=== PATIENT | male | born 1950 | race Caucasian/White ===

== ENCOUNTER 2018-06-04 15:10 | Inpatient (IN) ==
--- NOTE | 2018-06-04 16:40 | Emergency Department Note ---
Disposition Clinical Impression: Cellulitis and abscess of left leg, Hyponatremia, Non-alcoholic cirrhosis Disposition: Admitted As Inpatient Condition: Fair Referrals: Grazyna Rust, SANITIZER [Primary Care Provider] - Forms: ED Satisfaction Letter Skin/Abscess/FB HPI Chief complaint: ED Skin/Abscess/Foreign Body Stated complaint: cellulitus in legs Time Seen by Provider: 06/04/18 15:14 Source: patient Limitations: no limitations Nursing Notes Reviewed: Yes Vital Signs Reviewed: Yes HPI Narrative: 67-year-old male percents for evaluation of swelling located to his lower extremities with associated redness to his skin. Patient has chronic swelling to his lower extremities but over the last few days has developed increasing swelling and now has developed redness particularly of his left lower extremity. Patient is unaware of any fever or chills. He has no history of diabetes and has had prior problems with cellulitis in the past Home Medications Medication Instructions Recorded Confirmed Aspirin [Lo-Dose Aspirin EC] 81 mg PO DAILY 04/21/16 05/07/18 Carvedilol 18.75 mg PO BID 04/21/16 05/07/18 Furosemide [Lasix] 40 mg PO DAILY 04/21/16 05/07/18 Atorvastatin Calcium [Lipitor] 80 mg PO HS 05/07/18 05/07/18 Cyanocobalamin (B-12) [Vitamin B12] 1,000 mcg PO DAILY 05/07/18 05/07/18 Gabapentin [Neurontin] 300 mg PO TID 05/07/18 05/07/18 [place]-3/Dha/Epa/Fish Oil [Fish Oil 1 cap PO DAILY 05/07/18 05/07/18 1,000 mg Softgel] Spironolactone [Aldactone] 100 mg PO DAILY 05/07/18 05/07/18 Previous Rx's Medication Instructions Recorded Albuterol Sulfate [Albuterol 2 puff IH Q4HR PRN #1 hfa.[email or web address] 04/14/18 Inhaler] Apixaban [Eliquis] 5 mg PO BID #60 tablet 05/08/18 Allergies Allergy/AdvReac Type Severity Reaction Status Date / Time No Known Allergies Allergy Verified 12/02/17 14:11 Review of Systems: Constitutional: [Negative for fever and chills.] HENT: [Negative for congestion.] Eyes: [Negative for discharge.] Respiratory: [Negative for shortness of breath.] Cardiovascular: [Negative for chest pain.] Gastrointestinal: [Negative for nausea, vomiting, abdominal pain and diarrhea.] Endocrine: [Negative for excessive thirst,urination] Genitourinary: [Negative for dysuria and frequency.] Musculoskeletal: [Negative for myalgias and arthralgias.] Skin: see history of present illness Neurological: [Negative for dizziness, localized weakness and headaches.] Psychiatric/Behavioral: [Negative for nervous/anxious.] All other systems reviewed and are negative. Past Medical History - Past Medical History Attestation: Yes The following information was validated with the patient. Source: patient Medical history: Reports: atrial fibrillation, cardiomyopathy, cirrhosis, CHF, coronary artery disease, diabetes, GERD, hyperlipidemia, hypertension, myocardial infarction Surgical history: Reports: angioplasty/stent, coronary bypass (CABG), pacemaker/ AICD Psychiatric history: Reports: depression - Social History Smoking Status: Former smoker Smokeless Tobacco Status: No Alcohol use: Reports: none Drug use: Reports: none Physical Exam Constitutional: Patient is [alert], [healthy,and comfortable] and cooperative. . The patient appears [asymptomatic], [nontoxic, and does not appear ill]. HENT: Head: Normocephalic and atraumatic. Right Ear: External ear normal. Left Ear: External ear normal. Nose: Nose normal. Mouth/Throat: Oropharynx is clear and mucous membranes show [good hydration.] Eyes: Conjunctivae and EOM are normal. Pupils are equal, round, and reactive to light. Right eye exhibits [no] discharge. Left eye exhibits [no] discharge. Neck: Trachea is midline, normal range of motion and [phonation normal]. Neck supple. Cardiovascular: [Regular rhythm], S1 normal, S2 normal, normal heart sounds and intact distal pulses. Exam reveals no gallop and no friction rub. No murmur heard. [Capillary refill is brisk.] [Peripheral pulses are 2+] Pulmonary/Chest: Effort [normal] No stridor. [No] tachypnea. [No] respiratory distress. There are [no] decreased breath sounds. [There no wheezes, no rhonchi , or rales.] Abdominal: Soft. [Bowel sounds are normal]. There exhibits distension with tight ascites noted. There is [no tenderness], [no] CVA tenderness. There is [ no rigidity, no rebound, no guarding]. Musculoskeletal: Normal range of motion of uninvolved extremities. There exhibits [no edema]. [ ] Neurological: Patient is alert. Patient displays no atrophy and no tremor. No cranial nerve deficit and exhibits normal muscle tone. Coordination normal grossly. Skin: Skin is warm and dry. No erythema. Erythematous rash from his distal thigh down to his lower extremity on the left. Erythematous rash from his proximal lower leg down to his distal lower extremity on the right. Psychiatric: Patient has a [normal mood and affect.] Course Course Narrative: Patient was discussed with Dr. Sorenson on-call, hospitalist for admission. She is excepted the patient. I have written initial admitting orders at her convenience and she will assume further care upon the patient's arrival to the floor Vital Signs Temperature 98.3 F 06/04/18 16:26 Pulse Rate 123 06/04/18 16:26 Respiratory Rate 16 06/04/18 16:26 Blood Pressure 105/65 06/04/18 16:26 O2 Sat by Pulse Oximetry 94 06/04/18 16:26 Temperature 98.3 F 06/04/18 16:26 Pulse Rate 123 06/04/18 16:26 Respiratory Rate 16 06/04/18 16:26 Blood Pressure 105/65 06/04/18 16:26 O2 Sat by Pulse Oximetry 94 06/04/18 16:26 Oxygen Delivery Oxygen Delivery Room Air Skin/Abscess/Foreign Body - MDM Narrative Medical decision making narrative: Patient clearly has cellulitis and will need IV antibiotics - Lab Data Lab results reviewed: Yes I reviewed the patient's lab results. Result diagrams: 06/04/18 17:07 06/04/18 17:07 Lab Results 06/04/18 06/04/18 Range/Units 17:07 17:07 WBC 9.4 (4.3-11.1) K/mcL RBC 6.21 H (4.19-5.50) M/mcL Hgb 15.5 (12.9-16.9) g/dL Hct 47.8 (37.5-50.1) % MCV 77.0 L (83.0-100.0) fL MCH 25.0 L (28.0-33.3) pg MCHC 32.4 (31.6-35.5) g/dL RDW 22.2 H (11.5-14.5) % Plt Count 201 (140-400) K/mcL MPV 10.3 (9.4-12.4) fL Immature Gran % 0.4 (0-4) % Seg Neutrophils % 82.3 % Lymphocytes % 8.4 % Monocytes % 8.6 % Eosinophils % 0.0 % Basophils % 0.3 % Neutrophils # 7.7 (1.6-8.9) K/mcL Lymphocytes # 0.8 (0.6-4.6) K/mcL Monocytes # 0.8 (0.0-1.3) K/mcL Eosinophils # 0.0 (0.0-0.6) K/mcL Basophils # 0.0 (0.0-0.2) K/mcL Sodium 128 L (136-145) mEq/L Potassium 4.1 (3.5-5.1) mEq/L Chloride 97 L (98-107) mEq/L Carbon Dioxide 23 (23-29) mEq/L BUN 24 H (8-23) mg/dL Creatinine 1.07 (0.70-1.30) mg/dL Est GFR ( Amer) > 60 (> 60) Est GFR (Non-Af Amer) > 60 (> 60) BUN/Creatinine Ratio 22 (6-26) Glucose 175 H (70-105) mg/dL Calculated Osmolality 274 L (280-300) Calcium 8.9 (8.6-10.3) mg/dL Total Bilirubin 2.8 H (0.3-1.0) mg/dL AST 25 (13-39) Units/L ALT 12 (7-52) Units/L Alkaline Phosphatase 112 H (34-104) Units/L Serum Total Protein 5.9 L (6.4-8.9) g/dL Albumin 3.0 L (3.5-5.7) g/dL Globulin 2.9 (2.4-3.5) g/dL Albumin/Globulin Ratio 1.0 L (1.1-2.2)
[2018-06-04 17:17] LABS: Basophils % 0.3 %; Hematocrit 47.8 % (37.5-50.1); Hemoglobin 15.5 g/dL (12.9-16.9); Immature Granulocytes % 0.4 % (0-4); Lymphocytes # 0.8 K/mcL (0.6-4.6); Lymphocytes % 8.4 %; Mean Corpuscular HGB Conc 32.4 g/dL (31.6-35.5); Mean Platelet Volume 10.3 fL (9.4-12.4); Monocytes # 0.8 K/mcL (0.0-1.3); Monocytes % 8.6 %; Neutrophils # 7.7 K/mcL (1.6-8.9); Platelet Count 201 K/mcL (140-400); Red Blood Count 6.21 M/mcL (4.19-5.50); Red Cell Distribution Width 22.2 % (11.5-14.5); Segmented Neutrophils % 82.3 %
[2018-06-04 17:32] LABS: Alanine Aminotransferase 12 Units/L (7-52); Alkaline Phosphatase 112 Units/L (34-104); Aspartate Amino Transferase 25 Units/L (13-39); BUN/Creatinine Ratio 22 (6-26); Bilirubin,Total 2.8 mg/dL (0.3-1.0); Blood Urea Nitrogen 24 mg/dL (8-23); Calcium 8.9 mg/dL (8.6-10.3); Carbon Dioxide 23 mEq/L (23-29); Chloride 97 mEq/L (98-107); Globulin 2.9 g/dL (2.4-3.5); Glucose 175 mg/dL (70-105); Osmolality,Calculated 274 (280-300); Potassium 4.1 mEq/L (3.5-5.1); Sodium 128 mEq/L (136-145); Total Protein 5.9 g/dL (6.4-8.9); eGFR For Non-African Americans > 60 (> 60)
[2018-06-04] MEDS ORDERED: Acetaminophen 325 MG TABLET PO PRN (17:58)
[2018-06-04] MEDS: Apixaban 5 MG TABLET PO SCH (21:06)
[2018-06-04] MEDS: Gabapentin 300 MG CAPSULE PO SCH (21:06)
[2018-06-04] MEDS ORDERED: Ibuprofen 600 MG TABLET PO PRN (23:14)
[2018-06-05] MEDS ORDERED: Ipratropium/Albuterol Neb 3 ML IH PRN ×2 (03:18→12:39)
[2018-06-05 05:32] LABS: Basophils % 0.2 %; Eosinophils % 0.1 %; Hematocrit 46.1 % (37.5-50.1); Immature Granulocytes % 0.4 % (0-4); Lymphocytes # 0.9 K/mcL (0.6-4.6); Lymphocytes % 10.1 %; Mean Corpuscular HGB Conc 32.5 g/dL (31.6-35.5); Mean Corpuscular Hemoglobin 24.9 pg (28.0-33.3); Mean Corpuscular Volume 76.5 fL (83.0-100.0); Mean Platelet Volume 10.1 fL (9.4-12.4); Monocytes % 10.4 %; Neutrophils # 7.2 K/mcL (1.6-8.9); Platelet Count 195 K/mcL (140-400); Red Blood Count 6.03 M/mcL (4.19-5.50); Red Cell Distribution Width 22.1 % (11.5-14.5); Segmented Neutrophils % 78.8 %
[2018-06-05] MEDS ORDERED: *HR* Enoxaparin 30 MG/0.3 ML SYRINGE SQ SCH (06:00)
[2018-06-05 07:13] LABS: Basophils % 0.3 %; Eosinophils % 0.2 %; Hematocrit 46.2 % (37.5-50.1); Hemoglobin 14.8 g/dL (12.9-16.9); Immature Granulocytes % 0.8 % (0-4); Lymphocytes # 0.8 K/mcL (0.6-4.6); Lymphocytes % 8.6 %; Mean Corpuscular Volume 77.9 fL (83.0-100.0); Mean Platelet Volume 10.5 fL (9.4-12.4); Monocytes # 0.8 K/mcL (0.0-1.3); Monocytes % 9.2 %; Neutrophils # 7.1 K/mcL (1.6-8.9); Platelet Count 197 K/mcL (140-400); Red Blood Count 5.93 M/mcL (4.19-5.50); Red Cell Distribution Width 21.9 % (11.5-14.5); Segmented Neutrophils % 80.9 %
[2018-06-05 07:29] LABS: BUN/Creatinine Ratio 26 (6-26); Blood Urea Nitrogen 28 mg/dL (8-23); Calcium 8.5 mg/dL (8.6-10.3); Carbon Dioxide 23 mEq/L (23-29); Chloride 96 mEq/L (98-107); Glucose 175 mg/dL (70-105); Osmolality,Calculated 276 (280-300); Potassium 4.3 mEq/L (3.5-5.1); Sodium 128 mEq/L (136-145); eGFR For Non-African Americans > 60 (> 60)
[2018-06-05 07:43] LABS: Thyroid Stimulating Hormone 2.349 mcIU/mL (0.340-5.600)
[2018-06-05 08:31] LABS: INR 2.1; Prothrombin Time 24.1 Seconds (9.4-12.1)
[2018-06-05 08:34] LABS: Activated Partial Thrombo Time 35.2 Seconds (26.0-36.0)
[2018-06-05] MEDS: Apixaban 5 MG TABLET PO SCH ×2 (08:50→21:35)
[2018-06-05] MEDS: Piperacillin/Tazobactam 3.375 GM in 0.9 % Sodium Chloride Mini Bag 100 ML IVPB SCH ×3 (08:50→23:50)
[2018-06-05] MEDS: Cyanocobalamin (B-12) 1,000 MCG TABLET PO SCH (08:50)
[2018-06-05] MEDS: Gabapentin 300 MG CAPSULE PO SCH ×3 (08:50→21:35)
[2018-06-05] MEDS: Aspirin Enteric Coated 81 MG Tablet PO SCH (08:50)
[2018-06-05] MEDS ORDERED: NON-FORMULARY MEDICATION 1 EACH EACH (Omega-3/Dha/Epa/Fish Oil [Fish Oil 1,000 Mg Softgel] PO SCH (09:00)
[2018-06-05] MEDS: Furosemide 40 MG TABLET PO SCH (11:29)
[2018-06-05] MEDS ORDERED: MethylPREDNISolone 40 MG/ML VIAL IVP ONE (12:38)
[2018-06-05 13:35] LABS: % Iron Saturation 7 % (20-55); C-Reactive Protein 105 mg/L (Less than 10); Iron 28 mcg/dL (65-175); Transferrin 276 mg/dL (203-362)
[2018-06-05] MEDS: *HR* Digoxin 0.5 MG/2 ML AMPUL IVP ONE ×2 (14:32→18:42)
[2018-06-05 14:44] LABS: Prealbumin 5.7 mg/dL (17.0-34.0)
[2018-06-05] MEDS ORDERED: *HR* Digoxin 0.5 MG/2 ML AMPUL IVP ONE (18:14)
[2018-06-05] MEDS ORDERED: Ondansetron ODT 4 MG TAB.RAPDIS SL PRN (23:41)
[2018-06-06 05:03] LABS: Basophils % 0.1 %; Hematocrit 48.2 % (37.5-50.1); Hemoglobin 15.3 g/dL (12.9-16.9); Immature Granulocytes % 0.7 % (0-4); Lymphocytes # 0.6 K/mcL (0.6-4.6); Lymphocytes % 6.2 %; Mean Corpuscular HGB Conc 31.7 g/dL (31.6-35.5); Mean Corpuscular Hemoglobin 24.8 pg (28.0-33.3); Mean Platelet Volume 10.6 fL (9.4-12.4); Monocytes # 0.6 K/mcL (0.0-1.3); Monocytes % 6.1 %; Platelet Count 202 K/mcL (140-400); Red Blood Count 6.18 M/mcL (4.19-5.50); Red Cell Distribution Width 22.5 % (11.5-14.5); Segmented Neutrophils % 86.9 %
[2018-06-06 05:18] LABS: BUN/Creatinine Ratio 27 (6-26); Blood Urea Nitrogen 28 mg/dL (8-23); Calcium 8.3 mg/dL (8.6-10.3); Carbon Dioxide 24 mEq/L (23-29); Chloride 97 mEq/L (98-107); Glucose 250 mg/dL (70-105); Osmolality,Calculated 282 (280-300); Potassium 4.4 mEq/L (3.5-5.1); Sodium 129 mEq/L (136-145); eGFR For Non-African Americans > 60 (> 60)
[2018-06-06 05:22] LABS: Platelet Estimate Normal (Normal)
[2018-06-06 05:35] LABS: Thyroid Stimulating Hormone 0.898 mcIU/mL (0.340-5.600)
[2018-06-06] MEDS: Furosemide 40 MG TABLET PO SCH (08:05)
[2018-06-06] MEDS: Apixaban 5 MG TABLET PO SCH (08:05)
[2018-06-06] MEDS: Gabapentin 300 MG CAPSULE PO SCH (08:05)
[2018-06-06] MEDS: Cyanocobalamin (B-12) 1,000 MCG TABLET PO SCH (08:05)
[2018-06-06] MEDS: Aspirin Enteric Coated 81 MG Tablet PO SCH (08:06)
[2018-06-06] MEDS: Piperacillin/Tazobactam 3.375 GM in 0.9 % Sodium Chloride Mini Bag 100 ML IVPB SCH (08:06)
[2018-06-06 08:17] LABS: C-Reactive Protein 97 mg/L (Less than 10)
[2018-06-06] MEDS ORDERED: *HR* Digoxin 0.125 MG TABLET PO SCH (09:00)
[2018-06-06] MEDS ORDERED: *HR* Dextrose 50 % in Water (Syg) 50 ML SYRINGE IVP PRN (10:13)
[2018-06-06] MEDS ORDERED: Dextrose Gel 15 GM/37.5 ML TUBE PO PRN ×2 (10:13)
[2018-06-06] MEDS ORDERED: D5% in Water 1,000 ML IVC PRN (10:13)
--- NOTE | 2018-06-06 10:23 | Internal Med History&Physical ---
Date of Encounter: 06/06/18 Time of Encounter: 10:15 Assessment and Plan (1) Cellulitis Current visit: Yes Status: Acute Patient presented with increased erythema to bilateral lower extremities. History of chronic lymphedema and presents with +2 pitting edema and weeping to bilateral legs up to his lower abdomen. No wounds noted on exam. Patient was started on Zosyn and vancomycin which continues. Patient denies any fever or chills. WBC was only 9.2. Wound care is present and will apply Unna boots. We will continue with current antibiotics and evaluate patient's current diuretics. Qualifiers: Site of cellulitis: extremity Site of cellulitis of extremity: lower extremity Laterality: unspecified laterality Qualified Code(s): L03.119 - Cellulitis of unspecified part of limb (2) Diabetes mellitus Current visit: No Status: Chronic No acute issues. Patient has been on oral diabetic medications, which will be held at this time and will continue coverage with a sliding scale. We will continue to monitor patient's needs. 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 Patient continues with current diuretics and has been noted to have lost 1 kg in weight since yesterday. He was complaints of dyspnea after ambulating approximately 15 feet. Any shortness of breath while at rest. Denies any chest discomforts or palpitations. Patient does endorse orthopnea. Troponin was negative on admission. desk monitor currently shows atrial fibrillation with a ventricular rate of 100 to 130. Long history of cardiomyopathy with a recorded EF of 15-20% on his last EKG earlier this month. She was admitted with exacerbation of CHF approximately 4 weeks ago. We will discuss with Dr. Sorenson for further recommendations. Qualifiers: Heart failure type: combined systolic and diastolic Qualified Code(s): I50.42 - Chronic combined systolic (congestive) and diastolic (congestive) heart failure (4) Atrial fibrillation and flutter Current visit: No Status: Chronic Patient remains in atrial fibrillation with reticulocyte monitor currently showing ventricular rate of 100-130. Noted occasional unifocal PVC. 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 Admission troponin was negative, but we will repeat a troponin this morning. Patient currently remains on oral Cardizem and digoxin. Coreg has recently been discontinued. Patient currently denies any chest discomforts or palpitations. We will review patient with Dr. Sorenson for further recommendations. (5) Ascites Current visit: No Status: Chronic Patient with slightly distended abdomen which remains firm but nontender on palpation. Patient had a paracentesis approximately 4 weeks ago, during which time they removed 5 L. Patient states that his abdomen is slowly been increasing in size. Noted increased lower extremity edema. Patient with long history of CHF, which contributes to his fluid retention. LFTs showed only a slight elevation in alkaline phosphatase. We will continue to monitor patient with daily weights and obtain abdominal girth measurement, Qualifiers: Ascites type: other type Qualified Code(s): R18.8 - Other ascites Internal Medicine - H&P: HPI Chief complaint: cellulitis Admitted From: Home Plans for Post Hospital Care: Home History of present illness: Mr. Leon is a 67 year old male who presented to the emergency department yesterday with complaints of increased erythema to bilateral lower extremities. Patient has history of chronic lymphedema secondary to CHF and ascites. Patient had stated that he had noticed increased redness on the bilateral legs up to his knees. No open wounds were noted and patient was started on Zosyn and vancomycin and admitted to the floor for further treatment. Patient denied any fever or chills. Patient has a long history of cardiomyopathy and CHF with his most recent echocardiogram several weeks ago that showed a EF of 15-20%. Patient was admitted at [facility] with exacerbation of his CHF at that time Patient has had a recent paracentesis done approximately 3-4 weeks ago, during which she had 4 L that were removed while he was admitted at that time at [facility]. Patient states that this is second paracentesis over the last half. Patient states that his dry weight needs to be 250, but recently his weight has been ranging from 270-300 dependent on his fluid status. Patient states that he follows up with Dr. Gould from cardiology, stating that his last follow-up visit with him was during the first week of May admit weight after his discharge from hospital. Currently patient shows moderate amount of fluid retention with 2+ pitting edema up to his waist and lower abdomen. Patient states that his abdomen is slightly distended compared to the weeks prior after his paracentesis. Patient noted to become dyspneic while attempting to ambulate to the restroom which is approximately 10-15 feet. Patient currently is using a BiPAP and states that he uses his BiPAP at home at night and when he becomes short of breath. desk monitor has been showing atrial fibrillation with a ventricular rate ranging from 100 to 130. Noted occasional unifocal PVC. Patient's systolic blood pressure has been somewhat low, ranging from 90- 110. Past Med Surg Social Fam HX - Past Medical History Medical history: atrial fibrillation, cardiomyopathy, cirrhosis, CHF, coronary artery disease, diabetes, GERD, hyperlipidemia, hypertension, myocardial infarction Additional medical history: neuropathy Psychiatric history: depression - Past Surgical History Surgical History: angioplasty/stent, coronary bypass (CABG), pacemaker/AICD Additional surgical history: CARDIAC STENTS X 3 (2000), CABG w/ 4 bypasses (2006 ), demand pacemaker 02/2015 - Social History Smoking Status: Former smoker Smokeless Tobacco Status: No Alcohol use: none Drug use: none - Family History Father Living Status: Age at : 42 Hx Family Cardiac Disorders: Yes (Cardiomyopathy) Mother Living Status: Age at : 82 Cause of : Stroke Internal Medicine - H&P: Meds Aspirin [Lo-Dose Aspirin EC] 81 mg PO DAILY 04/21/16 [History] Carvedilol 18.75 mg PO BID 04/21/16 [History] Furosemide [Lasix] 40 mg PO DAILY 04/21/16 [History] Albuterol Sulfate [Albuterol Inhaler] 2 puff IH Q4HR PRN #1 hfa.aer.ad 04/14/18 [Rx] Atorvastatin Calcium [Lipitor] 80 mg PO HS 05/07/18 [History] Cyanocobalamin (B-12) [Vitamin B12] 1,000 mcg PO DAILY 05/07/18 [History] Gabapentin [Neurontin] 300 mg PO TID 05/07/18 [History] [place]-3/Dha/Epa/Fish Oil [Fish Oil 1,000 mg Softgel] 1 cap PO DAILY 05/07/18 [ History] 3 Allergy/AdvReac Type Severity Reaction Status Date / Time No Known Allergies Allergy Verified 12/02/17 14:11 All Systems PM: A 10-system review of systems was performed and is negative for pertinent findings except as documented above in the HPI. - Constitutional Constitutional: no chills, no fever(s), no night sweats - EENT Eyes: no change in vision, no discharge, no pain, no photophobia Ears: no ear discharge, no ear pain, no tinnitus Nose, mouth and throat: no dysphagia, no nasal discharge, no neck pain, no sore throat - Cardiovascular Cardiovascular ROS IM: as per HPI, no chest pain, no diaphoresis, no dyspnea, no lightheadedness, no palpitations, no syncope - Respiratory Respiratory: as per HPI, no cough, no dyspnea, no wheezing, no excessive phlegm production - Gastrointestinal Gastrointestinal: as per HPI, no abdominal pain, no diarrhea, no hematemesis, no hematochezia, no melena, no nausea, no vomiting - Musculoskeletal Musculoskeletal ROS IM: as per HPI, no numbness, no tingling - Integumentary Integumentary IM: as per HPI, no rash, no unusual bruising - Neurological Neurological ROS: no confusion, no convulsions, no focal weakness, no numbness, no tingling, no tremor(s) - Hematologic/Lymphatic Hematologic/Lymphatic: no easy bruising - Constitutional Vitals: Temp Pulse Resp BP Pulse Ox 98.2 F 86 28 119/84 93 06/06/18 08:48 06/06/18 08:48 06/06/18 08:48 06/06/18 08:48 06/06/18 08:48 General appearance: Present: A&O X 3, pleasant - Head Head exam: Present: atraumatic, normocephalic - Eye Eye exam: Present: PERRL, conjuntiva pink, sclera anicteric Pupils: Present: PERRL - Neck Neck exam general surgery: Present: supple, trachea midline. Absent: lymphadenopathy - Respiratory Respiratory exam: Present: CTAB. Absent: accessory muscle use, rales, rhonchi, wheezes Additional comments: Lungs are clear throughout upper [place]oll[place] but diminished to lower half. Respiratory effort appears relaxed while at rest. Noted dyspnea during ambulation. Currently using BiPAP - Cardiovascular Cardiovascular exam: Present: irregular rhythm, RRR, +S1, +S2. Absent: diastolic murmur, gallop, rubs, systolic murmur Additional comments: Irregular rate, with S1 and S2 being distant. desk monitor shows atrial fibrillation with ventricular rate ranging from 100 to 130 with occasional unifocal PVC. - GI/Abdominal GI/Abdominal exam: Present: distended, normal bowel sounds, soft, no peritoneal signs. Absent: tenderness Additional comments: Abdomen somewhat distended and firm, with no tenderness. Bowel sounds are distant. - Extremities Exam Extremities exam: Present: pedal edema, warm, radial pulses palpable and symmetrical. Absent: calf tenderness, cyanotic Additional comments: Patient shows +2 edema weeping of bilateral lower legs to entire bilateral legs and to lower abdomen. Bilateral lower legs show erythema up to the knees with no open wounds noted. Noted weeping of bilateral lower legs - Neurological Exam Neurological exam: Present: CN II-XII intact, oriented X3, no focal deficits. Absent: pronater drift, facial droop, speech deficit - Skin Skin exam: Present: dry, intact Additional comments: Bilateral lower legs with erythema, but no open wounds noted. Internal Med - H&P Results - Labs CBC & Chem 7: 06/06/18 04:56 06/06/18 04:56 Labs: Short CBC 06/06/18 Range/Units 04:56 WBC 9.2 (4.3-11.1) K/mcL Hgb 15.3 (12.9-16.9) g/dL Hct 48.2 (37.5-50.1) % Plt Count 202 (140-400) K/mcL Neutrophils # 8.0 (1.6-8.9) K/mcL BMP 06/06/18 04:56 Sodium 129 L Potassium 4.4 Chloride 97 L Carbon Dioxide 24 BUN 28 H Creatinine 1.03 Glucose 250 H Calcium 8.3 L Cardiac Enzymes 06/05/18 06/05/18 Range/Units 13:59 20:06 Troponin I < 0.03 < 0.03 (< 0.04) ng/mL
[2018-06-06] MEDS ORDERED: Insulin LISPRO 300 UNITS/3 ML VIAL SQ SCH ×2 (11:30→21:00)
--- NOTE | 2018-06-06 12:24 | Discharge Summary ---
Orders not resulted at time of discharge: Pending orders 06/05/18 06:34 EV echocardiogram Routine Date of Encounter: 06/06/18 Time of Encounter: 12:19 - Discharge Diagnosis (1) Cellulitis Priority: Primary Status: Acute Comments: Patient presented to [facility] department with complaints of increased erythema and edema to bilateral lower extremities and increased fluid retention. He presented with 2+ edema to bilateral lower extremities up to his lower abdomen. Bilateral lower legs showed erythema, but no open wounds noted. Patient was admitted for cellulitis and started on vancomycin and Zosyn. Wound care placed Unna boots on his bilateral lower extremities. Patient has remained afebrile and his WBC count has remained less than 10. Noted elevated inflammatory markers. Currently being transferred to [facility] for further treatment concerning his CHF and fluid retention. Qualifiers: Site of cellulitis: extremity Site of cellulitis of extremity: lower extremity Laterality: unspecified laterality Qualified Code(s): L03.119 - Cellulitis of unspecified part of limb (2) Diabetes mellitus Priority: Secondary Status: Chronic Comments: No acute issues during his stay at this facility. Patient's home oral diabetic medications have been held and has been currently covered with sliding scale insulin. Patient transferred to [facility] Qualifiers: Diabetes mellitus type: type 2 Diabetes mellitus intermediate card tender insulin use: without intermediate card tender use Diabetes mellitus complication status: with circulatory complication Diabetes mellitus complication detail: with other circulatory complications Qualified Code(s): E11.59 - Type 2 diabetes mellitus with other circulatory complications (3) Chronic congestive heart failure Priority: Secondary Status: Chronic Comments: Patient presented with increased fluid retention with noted +2 pitting edema to bilateral legs up to his lower abdomen. Patient with recent paracentesis due to chronic ascites approximately 3 weeks prior, during which time he had 5 L removed. Patient states that his abdomen has been more distended over the past week and appears as large as it was at his previous admission. Patient presented with atrial fibrillation with a ventricular rate that ranged from 110- 130. Noted occasional unifocal PVCs. Patient had 2 troponins that were done both being negative. He was restarted on his home diuretics, but unable to increase any diuresis due to patient's systolic blood pressure ranging between 90-110. Patient continued on oral Cardizem and digoxin. It was decided due to patient's atrial fibrillation and fluid retention that patient would be better served by transferring to [place] for a cardiology evaluation and further advanced treatment. Patient has been noted to become dyspneic with minimal exertion as noted when he attempted to to ambulate approximately 15 feet became very dyspneic and dorsalis orthopnea. Patient currently is being maintained on a BiPAP with saturations staying above 90%. Recent chest x-ray was obtained which shows no signs of current failure Qualifiers: Heart failure type: combined systolic and diastolic Qualified Code(s): I50.42 - Chronic combined systolic (congestive) and diastolic (congestive) heart failure (4) Atrial fibrillation and flutter Priority: Secondary Status: Chronic Comments: Patient continues with chronic atrial fibrillation with ventricular rate that has been from [address] depression unifocal PVCs. Troponin was repeated which shows negative. Patient continues on Cardizem and Lanoxin. Patient being transferred to [place] for further evaluation and treatment per cardiology. (5) Ascites Priority: Secondary Status: Chronic Comments: Patient with recent history of paracentesis that was performed approximately 4 weeks ago due to his chronic ascites. Per medical records patient shows that he had 5 L removed at that time. Patient currently has a slightly distended abdomen which is firm, but nontender. Patient states that his abdomen has enlarged over the past several weeks and is possibly as large as it was on his last admission. Currently presenting with moderate fluid retention showing +2 pitting edema to bilateral lower extremities up to his mid abdomen. Current LFTs showed only and slight elevation of phosphatase Qualifiers: Ascites type: other type Qualified Code(s): R18.8 - Other ascites Hospital course: Mr. Leon is a 67 year old male, whoc presented with increased fluid retention with noted +2 pitting edema to bilateral legs up to his lower abdomen. Patient with recent paracentesis due to chronic ascites approximately 3 weeks prior, during which time he had 5 L removed. Patient states that his abdomen has been more distended over the past week and appears as large as it was at his previous admission. Patient presented with atrial fibrillation with a ventricular rate that ranged from 110-130. Noted occasional unifocal PVCs. Patient had 2 troponins that were done both being negative. He was restarted on his home diuretics, but unable to increase any diuresis due to patient's systolic blood pressure ranging between 90-110. Patient continued on oral Cardizem and digoxin. It was decided due to patient's atrial fibrillation and fluid retention that patient would be better served by transferring to [place] for a cardiology evaluation and further advanced treatment. Patient has been noted to become dyspneic with minimal exertion as noted when he attempted to to ambulate approximately 15 feet became very dyspneic and dorsalis orthopnea. Patient currently is being maintained on a BiPAP with saturations staying above 90%. Recent chest x-ray was obtained which shows no signs of current failure It was decided patient would be better served by transferring to [facility] or patient to be evaluated treated per cardiology to effectively diurese patient in spite of his symptomatic low cardiac output. Discharge discussed with: patient Time spent discussing smoking cessation with patient: 3 to 10 minutes - Time Spent with Patient Total time spent providing and/or coordinating discharge services: Less than 30 minutes - Discharge Medications Home Medications: Aspirin [Lo-Dose Aspirin EC] 81 mg PO DAILY 04/21/16 [History] Carvedilol 18.75 mg PO BID 04/21/16 [History] Furosemide [Lasix] 40 mg PO DAILY 04/21/16 [History] Albuterol Sulfate [Albuterol Inhaler] 2 puff IH Q4HR PRN #1 [email or web address] 04/14/18 [Rx] Atorvastatin Calcium [Lipitor] 80 mg PO HS 05/07/18 [History] Cyanocobalamin (B-12) [Vitamin B12] 1,000 mcg PO DAILY 05/07/18 [History] Gabapentin [Neurontin] 300 mg PO TID 05/07/18 [History] Alma-3/Dha/Epa/Fish Oil [Fish Oil 1,000 mg Softgel] 1 cap PO DAILY 05/07/18 [ History] Allergies/Adverse Reactions: 3 Allergy/AdvReac Type Severity Reaction Status Date / Time No Known Allergies Allergy Verified 12/02/17 14:11 Date of admission: 06/05/18 05:00 Primary care physician: Grazyna Rust CNP Consults: 06/05/18 06:29 Consult to Wound Care [CONS] Routine Reason for Consult: Bilateral Weeping Cellulitis Lower Extremities Call Completed: Yes 06/05/18 08:13 Consult to Cardiology [CONS] Routine Comment: Consulting Provider: [facility] [place] Reason for Consult: abnormal EKG. tachycardia Call Completed: No Discharging clinician: Perla Sorenson - Constitutional Vitals: Temp Pulse Resp BP Pulse Ox 98.2 F 86 28 119/84 93 06/06/18 08:48 06/06/18 08:48 06/06/18 08:48 06/06/18 08:48 06/06/18 08:48 General appearance: Present: A&O X 3, pleasant - Head Head exam: Present: atraumatic, normocephalic - Eye Eye exam: Present: PERRL, conjuntiva pink, sclera anicteric Pupils: Present: PERRL - Neck Neck exam general surgery: Present: supple, trachea midline. Absent: lymphadenopathy - Respiratory Respiratory exam: Present: CTAB. Absent: accessory muscle use, rales, rhonchi, wheezes Additional comments: Lungs are clear throughout upper holliday and noted diminished throughout basilar holliday. Patient currently has BiPAP in use and maintain an oxygen saturation greater than 90%. Patient's respiratory effort while at rest appears relaxed with a respiratory rate of 22/m. - Cardiovascular Cardiovascular exam: Present: irregular rhythm, RRR, +S1, +S2. Absent: diastolic murmur, gallop, rubs, systolic murmur Additional comments: Patient continues to have irregular heart rate secondary to atrial fibrillation. surveillance monitor shows atrial fibrillation with a ventricular rate ranging from 100-130. S1 and S2 auscultated with very distant. - GI/Abdominal GI/Abdominal exam: Present: normal bowel sounds, soft, no peritoneal signs. Absent: distended, tenderness Additional comments: Abdomen remains somewhat distended and firm with no tenderness. Bowel sounds are distant - Extremities Exam Extremities exam: Present: warm, radial pulses palpable and symmetrical. Absent : calf tenderness, cyanotic, pedal edema Additional comments: Patient shows 2+ pitting edema to bilateral legs up to his mid abdomen. Noted bilateral lower legs are very erythemic. Currently has Unna boots in place. No open wounds were noted earlier today during inspection. - Neurological Exam Neurological exam: Present: CN II-XII intact, oriented X3, no focal deficits. Absent: pronater drift, facial droop, speech deficit - Skin Skin exam: Present: dry, intact - Patient Status Disposition: Transfer Critical Access Hosp Condition: Fair Functional capacity at discharge: uses cane/walker Overall status at discharge: patient is not back to baseline - Discharge Instructions Follow Up With: Grazyna Rust, CINDER [employer]ER [Primary Care Provider] - - Diet and Activity Activity: increase activity as tolerated Diet: low fat, low cholesterol, low salt diet
[2018-06-06 12:28] VITALS: BP 104/75
[2018-06-06] MEDS ORDERED: Aminoglycoside Consult 1 EACH MC ONE (13:47)
--- NOTE | 2018-06-08 14:45 | Electrocardiograph Report ---
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
--- NOTE | 2018-06-08 21:07 | Electrocardiograph Report ---
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
--- NOTE | 2018-06-08 21:14 | Electrocardiograph Report ---
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
== END 2018-06-06 13:48 | disposition critical access hospital (66) | DRG 603 ==
LOC: INPGRE 15:10 → EMEROOGRE 15:10 → INPGRE 18:42
PROVIDERS: ADMIT Internal Medicine; ATTEND Internal Medicine